=== PATIENT | female | born 1985 | race Caucasian/White ===

== ENCOUNTER → 2017-06-03 | Outpatient (CLI) | payer MEDICAID ==
[~2017-06-03] MED LIST: ALBUTEROL2 PUFFS/17 IN; AMOXICILLIN 50500 MG PO; AVELOX400 MG PO; BACLOFEN20 MG PO; BACTRIM DS 8001 TAB PO; BUPROBAN150 MG PO; CEFDINIR300 MG PO; CEPHALEXIN MON500 MG PO; CIPRO 500MG TA500 MG PO; CLONAZEPAM 1MG T1 MG OR; CLONAZEPAM 1MG T1 MG PO; CORTISPORIN (GE10 M1 OT; DARVOCET-N 1001 EACH PO; DARVOCET-N6 EACH/PAK PO; DEPAKOTE 500MG500 MG PO; DIFLUCAN150 MG PO; DIVALPROEX SOD500 M1 PO; FLAGYL500 MG PO; FLOVENT 11110 MCG/PU IH; FLOVENT 22220 MCG/PU IH; GABAPENTIN100 MG PO; HYDROCODONE1 TABLET PO; KEFLEX 500MG.500 MG PO; KEFLEX500 M1 PO; KLONOPIN1 M1 PO; LORTAB 5/500 501 TAB PO; LORTAB 500 MG PO; LORTAB 500 MG-71 TAB PO; MACROBID 100MG100 MG PO; MOTRIN600 MG PO; MOTRIN800 MG PO; NITROFURANTOIN100 M2 PO; OXYBUTYNIN CHLOR5 MG PO; PERCOCET 10 MG1 EACH PO; PERCOCET 5/3251 EACH PO; PERCODAN 325 MG1 TAB PO; PHENERGAN 12.12.5 M1 PO; PHENERGAN 25MG.25 M1 PO; PHENERGAN VC +120 ML PO; PYRIDIUM 200MG200 MG PO; SEPTRA DS 800 M1 TAB PO; TYLENOL W/CODEI1 TA2 PO; ULTRAM 50 MG TA50 MG PO; VENTOLIN H0.09 MG/Ac IH; VOLTAREN75 MG PO; ZMAX2 GM/60 ML PO; ZOFRAN ODT4 MG PO; ZOFRAN ODT8 MG PO
[2017-06-03 20:20] LABS: AMPHETAMINES/METAMPHETAMINES NEGATIVE ng/mL (<1000)
== END ==
LOC: LAB 15:07
PROVIDERS: Emergency Medicine
DX: R30.0 Dysuria (principal)